=== PATIENT | female | born 1955 | race Caucasian/White ===

== ENCOUNTER 2021-12-12 13:37 | Observation (INO) | payer MEDICARE, MEDICAID ==
[2021-12-12] VITALS (172 sets, daily range): BP systolic 138–163; BP diastolic 71–84; PULSE 67–72; TEMP 98–98.4; O2SAT 91–98
[~2021-12-12] VITALS: Ht 162.6 cm; Wt 68.6 kg
[2021-12-12 13:56] LABS: BASO # 0.1 K/mm3 (0.0-0.2); EOS # 0.7 K/mm3 (0.0-0.7); EOS % 10.9 % (0.0-4.0); GRAN # 3.4 K/mm3 (1.4-6.5); GRAN % 51.2 % (42.2-75.2); HEMATOCRIT 41.9 % (37.0-47.0); HEMOGLOBIN 13.8 g/dl (12.5-16.0); LYMPH % 30.1 % (20.0-51.0); MEAN CELL VOLUME 87 fl (80.0-100.0); MEAN CORPUSCULAR HEMOGLOBIN 29 pg (27-31); MEAN CORPUSCULAR HGB CONC 33 g/dl (33.0-37.0); MEAN PLATELET VOLUME 10.7 fl (7.4-10.4); MONO # 0.4 K/mm3 (0.1-0.6); MONO % 6.5 % (1.7-9.3); PLATELET COUNT 244 K/mm3 (130-400); RED BLOOD COUNT 4.83 M/mm3 (4.10-5.30); REDCELL DISTRIBUTION WIDTH-CV 13.6 % (11.5-14.5)
[2021-12-12 14:19] LABS: ALANINE AMINOTRANSFERASE 14 U/L (0-55); ALBUMIN 4.2 gm/dL (3.4-4.8); ALKALINE PHOSPHATASE 93 U/L (40-150); ANION GAP 12 mmol/L (7-16); AST,SGOT 16 U/L (5-34); BILIRUBIN,TOTAL 0.4 mg/dL (0.2-1.2); BLOOD UREA NITROGEN 13 mg/dL (10-20); C-REACTIVE PROTEIN 0.24 mg/dL (0.00-0.50); CALCIUM 9.4 mg/dL (8.4-10.2); CARBON DIOXIDE 24 mmol/L (23-31); CHLORIDE 105 mmol/L (98-107); CREATININE, serum 0.82 mg/dL (0.57-1.11); GLUCOSE 120 mg/dL (70-99); POTASSIUM 3.3 mmol/L (3.5-4.5); SODIUM 141 mmol/L (136-145); TOTAL PROTEIN 7.5 gm/dL (6.2-8.1)
[2021-12-12 14:28] LABS: TROPONIN-I < 0.010 ng/mL (0.00-0.033)
[2021-12-12] MEDS ORDERED: SYNTHROID0.088 MG/T PO (17:19)
[2021-12-12] MEDS ORDERED: SINGULAIR 110 MG/TAB PO (17:19)
[2021-12-12] MEDS ORDERED: BREO ELLIPTA 21 EACH IH (17:19)
[2021-12-12] MEDS ORDERED: FLONASEALLERGY NS (17:20)
[2021-12-12] MEDS ORDERED: ALLEGRA 60MG TA60 MG PO (17:20)
[2021-12-12] MEDS ORDERED: PROAIR HFA0.09 MG/AC IH (17:20)
--- NOTE | 2021-12-12 18:48 | NUR ---
PT ADMITED TO BED 7 FROM ED VIA COT AT 1740. UPON ADMISSION PT HAS A 20G IV TO L WRIST, NO MEDS INFUSING AT THAT TIME. VSS, PT DENIES PAIN, ASSESSMENT IS WNL. NURSE AWAITING FURTHER ORDERS AT THIS TIME. PT IS RESTING IN BED, CALL LIGHT IN REACH, DENIES NEEDS AT THIS TIME.
[2021-12-13] VITALS (7 sets, daily range): BP systolic 121–158; BP diastolic 62–92; PULSE 64–93; TEMP 98.1–98.7
--- NOTE | 2021-12-13 09:24 | NUR ---
PATIENT RESTING IN BED. ECHO THIS AM. PATIENT NPO OVERNIGHT. AWAITING PLAN FROM CARDIO/HOSPITALIST. NO COMPLAINTS OF PAIN, NO COMPLAINTS OF N/V OR DIZZINESS. PATIENT ANXIOUS TO BE DISCHARGED. PATIENT HAS INTERMITTENT WET COUGH, STATES SHE HAS HAD FOR ROUGHLY 2 WEEKS AND HER ENTIRE FAMILY HAS HAD THE SAME COUGH. WILL ADDRESS WITH PROVIDER. LAST BM PER PATIENT IN ER, LIQUID.
[2021-12-13 11:43] LABS: BASO % 0.7 % (0.0-2.0); EOS # 0.5 K/mm3 (0.0-0.7); EOS % 8.2 % (0.0-4.0); GRAN # 3.5 K/mm3 (1.4-6.5); GRAN % 61.4 % (42.2-75.2); HEMOGLOBIN 13.6 g/dl (12.5-16.0); LYMPH # 1.3 K/mm3 (1.2-3.4); LYMPH % 23.5 % (20.0-51.0); MEAN CELL VOLUME 89 fl (80.0-100.0); MEAN CORPUSCULAR HEMOGLOBIN 28 pg (27-31); MEAN CORPUSCULAR HGB CONC 32 g/dl (33.0-37.0); MEAN PLATELET VOLUME 10.6 fl (7.4-10.4); MONO # 0.3 K/mm3 (0.1-0.6); PLATELET COUNT 251 K/mm3 (130-400); RED BLOOD COUNT 4.82 M/mm3 (4.10-5.30); REDCELL DISTRIBUTION WIDTH-CV 13.5 % (11.5-14.5)
[2021-12-13 12:00] LABS: CALCIUM 9.5 mg/dL (8.4-10.2); CREATININE, serum 0.83 mg/dL (0.57-1.11); POTASSIUM 4.3 mmol/L (3.5-4.5)
--- NOTE | 2021-12-13 13:59 | NUR ---
Beef Breaker met with patient to discuss discharge planning. Patient lives in [place] and advised she recently moved here from [place]. Her daughter, Marielena (ph#[phone]) and son in law also live here as her MASOOD is recently retired from the . Patient is scheduled on 02/19/22 to get established with Dr. Dooley for primary care. Patient obtains medications from [facility] with no difficulties. Patient has a nebulizer and no other DME. Patient is independent with ADLS and plans to return home at time of discharge. Patient does not have Advance Directives but plans to complete them soon. SW offered assistance which patient declined. Discharge Plan: Home
--- NOTE | 2021-12-13 16:21 | NUR ---
See merge for all medication, assessment, intervention and vital sign times.
--- NOTE | 2021-12-13 19:16 | NUR ---
PATIENT WENT TO RECREATIONAL ASSISTANT TODAY, NEGATIVE RESULTS. NO COMPLAINTS OF PAIN. TR BAND WITH 15ML OF AIR, TO BE RELEASED STARTING AT 1845. NO HEMATOMA NO BLEEDING ON SHIFT CHANGE. PATIENT VITALS STABLE. VITAL MACHINE FAILED ON POST OP VITALS.
[2021-12-14 00:13] VITALS: BP 119/66; PULSE 79; TEMP 98.2
[2021-12-14 04:12] VITALS: BP 111/62; PULSE 74; TEMP 98
[2021-12-14 06:35] LABS: BASO # 0.1 K/mm3 (0.0-0.2); BASO % 1.2 % (0.0-2.0); EOS # 0.6 K/mm3 (0.0-0.7); EOS % 10.9 % (0.0-4.0); GRAN # 2.4 K/mm3 (1.4-6.5); GRAN % 46.7 % (42.2-75.2); HEMOGLOBIN 12.7 g/dl (12.5-16.0); LYMPH # 1.6 K/mm3 (1.2-3.4); LYMPH % 31.5 % (20.0-51.0); MEAN CELL VOLUME 87 fl (80.0-100.0); MEAN CORPUSCULAR HEMOGLOBIN 28 pg (27-31); MEAN CORPUSCULAR HGB CONC 33 g/dl (33.0-37.0); MEAN PLATELET VOLUME 10.5 fl (7.4-10.4); MONO # 0.5 K/mm3 (0.1-0.6); MONO % 9.5 % (1.7-9.3); PLATELET COUNT 242 K/mm3 (130-400); RED BLOOD COUNT 4.51 M/mm3 (4.10-5.30); REDCELL DISTRIBUTION WIDTH-CV 13.3 % (11.5-14.5)
[2021-12-14 06:49] LABS: CREATININE, serum 0.83 mg/dL (0.57-1.11); POTASSIUM 3.8 mmol/L (3.5-4.5)
[2021-12-14 08:06] VITALS: BP 126/62; PULSE 73; TEMP 98.6
--- NOTE | 2021-12-14 08:36 | NUR ---
PATIENT RESTING COMFORTABLY IN BED. NO COMPLAINTS OF PAIN. CATH SITE IN RIGHT WRIST, NO BLEEDING NO OOZING, NO HEMATOMA. PATIENT INDEPENDENT IN THE ROOM. PATIENT READY TO DISCHARGE TODAY.
--- NOTE | 2021-12-14 12:17 | NUR ---
PATIENT DISCHARGE INSTRUCTIONS GIVEN. PATIENT EXPRESSED UNDERSTANDING. LOOP RECORDER SITE, CLEAN DRY AND INTACT. NO COMPLAINTS OF PAIN. TELE DISCONTINUED, IV DISCONTINUED. PATIENT DRESSED INDEPENDENTLY. AWAITING RIDE. REQUESTED TO WALK WITH AIDE TO ER ENTRANCE WHEN RIDE ARRIVES.
--- NOTE | 2021-12-14 14:27 | NUR ---
Jessenia: [employer] Situation: Dba stopped by room on rounds Background: PT was content Assessment: PT has no needs and appreciated the visit Recommendation: assistant hvac mechanic will follow up as needed
== END 2021-12-14 12:40 | disposition home or self-care (01) ==
LOC: COL.ER 13:37 → ICU 15:57 → MEDICAL 15:57 → ICU 15:57 → MEDICAL 20:41
PROVIDERS: Personal Emergency Response Attendant; ADMIT Student in an Organized Health Care Education/Training Program
DX: R55 Syncope and collapse (principal); I34.1 Nonrheumatic mitral (valve) prolapse; I10 Essential (primary) hypertension; J45.909 Unspecified asthma, uncomplicated; E03.9 Hypothyroidism, unspecified; Z85.3 Personal history of malignant neoplasm of breast; Z79.899 Other long term (current) drug therapy
CPT/HCPCS: C1764; C1769; G0378; J2250; J2405; J3010; J7030

== ENCOUNTER → 2023-05-25 | Outpatient (CLI) | payer MEDICARE ==
[~2023-05-25] MED LIST: ALLEGRA 60MG TA60 MG PO; ALLEGRA ALLERG180 MG PO; BREO ELLIPTA 21 EACH IH; CEPHALEXIN500 M1 PO; DOXYCYCLINE 10100 MG PO; FLONASEALLERGY NS; MASON NATURAL2000 IU CHEW; NATURAL POTASS595 MG PO; PROAIR HFA0.09 MG/AC IH; SINGULAIR 110 MG/TAB PO; SYNTHROID0.088 MG/T PO
== END ==
LOC: MC.RAD 10:37
DX: Z12.31 Encounter for screening mammogram for malignant neoplasm of breast (principal)